=== PATIENT | male | born 1970 | race Caucasian/White ===

== ENCOUNTER 2019-09-28 10:19 | Day surgery (SDC) | payer BC ==
[2019-09-28] MEDS ORDERED: LIDOCAINE 2% MDV (20MG/ML) 20ML VIAL IV ONE (10:20)
[2019-09-28] MEDS ORDERED: PROPOFOL 10 MG/ML VIAL IV ONE (10:20)
--- NOTE | 2019-10-02 08:00 | Operative Note ---
OPERATION: COLONOSCOPY to the cecum. INDICATION: Intermittent episodes of rectal bleeding. The patient states that approximately 1 year ago he started noticing some rectal bleeding with occasional clots. He states that this bleeds very intermittently. He may go a month between episodes. Colonoscopy is performed at this time for further evaluation. There is no family history of colon cancer. The patient denies any abdominal pain or change in his stool pattern or frequency. ANESTHESIA: Intravenous sedation was administered by the department of anesthesiology and included Diprivan titrated to effect. PROCEDURE: Following informed consent from this alert individual including a discussion of the risks and benefits of the procedure and an opportunity for the patient to ask questions, the patient was in the left lateral decubitus position. A digital rectal examination was performed. No abnormalities were noted. Following this, the Olympus ZQH850 video colonoscope was inserted into the rectum without resistance. The rectal mucosa itself had a normal appearance with normal folds and distensibility. There was no blood noted. No bleeding sites identified. The colonoscope was then farther advanced up through the bowel to the level of the cecum without difficulty. Throughout the remainder of the bowel, the mucosa appeared normal, the folds were normal, and the bowel was fairly well distensible. The preparation was adequate with some small amounts of retained yellow semi-formed stool. Washing and suctioning was employed vigorously with fair to good visualization. The cecum was well defined by noting the appendiceal orifice and ileocecal valve. From the base of the cecum, the colonoscope was then slowly withdrawn. No changes were noted in the mucosa throughout the bowel. Retroflexion in the rectum, however, did demonstrate moderate-sized internal hemorrhoids. The instrument was straightened and removed. The patient tolerated the procedure well and was returned to the recovery area in stable condition. IMPRESSION: 1. Moderate-sized internal hemorrhoids. 2. Otherwise unremarkable colonoscopy to the cecum with a fair to good colon preparation. RECOMMENDATIONS: The patient was advised that he could utilize topical hemorrhoidal cream for his hemorrhoids or consider removal by surgery if he would like. At this point, he claims he was fine just monitoring them clinically. I did recommend a recheck colonoscopy in 5 years' time or sooner if problems arise. As always, thank you for allowing me to participate in the care of your patient. FRANCISCO
== END 2019-09-28 12:47 | disposition home or self-care (01) ==
LOC: HOP 10:19
PROVIDERS: ATTEND Internal Medicine Gastroenterology
DX: K64.8 Other hemorrhoids (principal); J45.909 Unspecified asthma, uncomplicated; D11.9 Benign neoplasm of major salivary gland, unspecified; G47.33 Obstructive sleep apnea (adult) (pediatric)
CPT/HCPCS: 00812; G0121